=== PATIENT | female | born 1990 | race Caucasian/White ===

== ENCOUNTER 2018-03-10 10:31 | Outpatient (CLI) | END 2018-03-10 13:13 | disposition home or self-care (01) ==

== ENCOUNTER 2018-04-21 02:11 | Emergency (ER) | payer MEDICAID ==
[~2018-04-21] VITALS: Ht 165.1 cm; Wt 104.7 kg
[~2018-04-21 02:11] MED LIST: PREN-93 PO
[2018-04-21 02:15] VITALS: Ht 165.1 cm; Wt 104.7 kg
[2018-04-21] MEDS ORDERED: AMOX500C2 PO (02:48)
--- NOTE | 2018-04-21 02:51 | ERD ---
ER Documentation Chief Complaint Chief Complaint bilateral ear pain today only w/ fever-now resolved. 29 wks HPI 27-year-old female who is 29 weeks . She has no OB complaints. She is complaining of bilateral ear pain that began today. She also states she had a fever but admits she did not take her temperature at home. No cough. No abdominal pain. No nausea or vomiting. No urinary symptoms. No vaginal bleeding. No pelvic pain. Took Tylenol at about 4 PM. None since ROS All systems reviewed and are negative except as per history of present illness. Medications Home Meds Active Scripts Amoxicillin* (Amoxicillin*) 500 Mg Cap, 500 MG PO BID for 7 Days, CAP Prov:BARRY JUÁREZ PA-C 04/21/18 Reported Medications Vit No.124/Iron/FA ( Vitamin Tablet) 1 Each Tablet, 1 EACH PO DAILY, TAB 03/10/18 Allergies Allergies: Coded Allergies: No Known Allergies (Verified Allergy, Mild, 11/07/09) PMhx/Soc Medical and Surgical Hx: pt denies Medical Hx, pt denies Surgical Hx History of Surgery: No Anesthesia Reaction: No Hx Neurological Disorder: No Hx Respiratory Disorders: No Hx Cardiac Disorders: No Hx Psychiatric Problems: No Hx Miscellaneous Medical Probl: No Hx Alcohol Use: No Hx Substance Use: No Hx Tobacco Use: No Smoking Status: Unknown if ever smoked FmHx Family History: No diabetes Physical Exam Vitals Vital Signs Date Temp Pulse Resp B/P (MAP) Pulse Ox O2 O2 Flow FiO2 Time Delivery Rate 04/21/18 98.2 106 20 138/64 97 02:15 (88) Physical Exam INITIAL VITAL SIGNS: Reviewed by me GENERAL: Awake, alert and oriented x 4, well appearing, nontoxic, speaking in full sentences. No acute distress HEAD: Atraumatic NECK: Supple. No masses. Full range of motion. No meningismus. No midline tenderness. EYES: EOMI. PERRL. EAR: Right tympanic membrane erythematous, no exudates, left ear within normal limits THROAT: No tonilar erythema or edema. No exudates. Uvula midline. No kissing tonsils. RESPIRATORY: Clear to auscultation bilaterally. Symmetric chest wall rise. No wheezing or rales. No accessory muscle use. CV: Regular rate and rhythm. No murmurs, rubs, or gallops. ABDOMEN: Soft, fundal height appropriate for gestational age. Nontender. Negative [place]. Negative McBurneys point tenderness. No CVA tenderness bilaterally. No guarding. No rebound. Procedures/MDM female with ear pain. She has no OB complaints. She does have otitis media in the right ear. She is afebrile and has been over 4 hours that she is taking Tylenol. She was given a [id number] prescription for amoxicillin. Otherwise recommended just taking Tylenol at home. Patient counseled regarding my diagnostic impression and care plan. Prior to discharge all questions answered. Pt agrees with treatment plan and understands strict return precautions. Pt is instructed to follow up with primary care provider within 24- 48 hours. Precautionary instructions provided including instructions to return to the ER if not improving or for any worsening or changing symptoms or concerns. Departure Diagnosis: Primary Impression: Otitis media Condition: Stable Patient Instructions: Otitis Media, Wait And See Abx Tx (Child Over 6 Mo) Additional Instructions: Call your primary care doctor TOMORROW for an appointment during the next 1-2 days.See the doctor sooner or return here if your condition worsens before your appointment time. BARRY JUÁREZ PA-C Apr 21, 2018 02:51
[2018-04-21 03:03] VITALS: BP 119/60; PULSE 98; RESP 18
[2018-04-30] MEDS ORDERED: FOL8 PO (02:06)
[2018-04-30] MEDS ORDERED: FERR256T PO (02:06)
== END 2018-04-21 03:04 | disposition home or self-care (01) ==
LOC: FTE 02:11
DX: O99.89 Other specified diseases and conditions complicating pregnancy, childbirth and the puerperium (principal); H66.91 Otitis media, unspecified, right ear; Z3A.29 29 weeks gestation of pregnancy
CPT/HCPCS: 99283

== ENCOUNTER 2018-06-12 10:14 | Outpatient (CLI) | payer MEDICAID ==
[~2018-06-12] VITALS: Ht 165.1 cm; Wt 106.0 kg
[~2018-06-12 10:14] MED LIST changes: +FERR256T PO; +FOL8 PO
[2018-06-12 10:50] VITALS: Ht 165.1 cm; Wt 106.0 kg
[2018-06-12 10:51] VITALS: BP 113/66; PULSE 82; RESP 20
--- NOTE | 2018-06-12 14:11 | TRIAGE ---
OB Triage Datetime Report Generated by CPN: 06/12/2018 14:11 Datetime: 06/12/2018 13:00 Labor Evaluation Frequency: 0 Monitor Mode: External Heart Rate FHR Baseline Rate: 130 Monitor Mode: External US FHR Baseline Changes: No Baseline Change Variability: Moderate 6-25 bpm Accelerations: 15X15 Decelerations: None Category: Category I Pain Assessment Pain Scale: 0 Pain Presence: None/Denies Pain Type: N/A Pain Goal: 0 Datetime: 06/12/2018 11:59 Labor Evaluation Frequency: X2 Monitor Mode: External Duration (sec)2399: 40-60 Quality: Mild Pattern: Normal: <= 5 Contractions in 10 Minutes Resting Tone [place]: Relaxed Heart Rate FHR Baseline Rate: 130 Monitor Mode: External US FHR Baseline Changes: No Baseline Change Variability: Moderate 6-25 bpm Accelerations: 15X15 Decelerations: None Category: Category I Pain Assessment Pain Scale: 0 Pain Presence: None/Denies Pain Type: N/A Pain Goal: 0 Datetime: 06/12/2018 11:23 Monitor Mode: External US Datetime: 06/12/2018 11:08 Labor Evaluation Frequency: X1 Monitor Mode: External Duration (sec)2399: 60 Quality: Mild Pattern: Normal: <= 5 Contractions in 10 Minutes Resting Tone [place]: Relaxed Heart Rate FHR Baseline Rate: 130 Monitor Mode: External US FHR Baseline Changes: No Baseline Change Variability: Moderate 6-25 bpm Accelerations: 15X15 Decelerations: None Category: Category I Pain Assessment Pain Scale: 0 Pain Presence: None/Denies Pain Type: N/A Pain Goal: 0 Datetime: 06/12/2018 10:41 Stage of : OB Triage Assessment Type: Triage Maternal Assessment Level of Consciousness: Fully Conscious DTR's/Clonus: DTRs 2+; No Clonus Headache: Denies Blurred Vision: No Respiratory Effort: Unlabored; Regular Rhythm; Equal Expansion Breath Sounds, Left: Clear and Equal Breath Sounds, Right: Clear and Equal Nausea/Vomiting: Denies RUQ Epigastric Pain: Denies Lower Extremities Edema: Bilateral Lower Extremities Degree: None Upper Extremities Edema: None Degree: None Facial Edema: None Temperature Route: Axillary Fall Risk Assessment History of Falling: (0) No Secondary Diagnosis: (0) No Ambulatory Aid: (0) Bedrest/Nurse Assist IV Therapy: (0) No Gait: (0) Normal/Bedrest/Immobile Mental Status: (0) Oriented to Own Ability Fall Score: 0 Fall Risk Score Definition: No Risk: No action required Monitor Mode: External Monitor Mode: External US Datetime: 06/12/2018 10:27 Time of Arrival: 06/12/2018 10:10 EGA: 36.5 Arrived By: Ambulatory Movement: Present Contractions: Denies/Absent Rupture of Membranes: Denies Vaginal Bleeding: None Vaginal Discharge: Denies Recent Sexual Intercouse: Denies Abdominal Trauma: Not Applicable Patient Complaints: None Time Provider Notified: 06/12/2018 13:15 Provider Notified: DR. AGARWAL Datetime: 04/30/2018 03:57 Monitor Mode: External Contraction Comments: no uc's noted Heart Rate FHR Baseline Rate: 140 Monitor Mode: External US Variability: Moderate 6-25 bpm Accelerations: 15X15 Decelerations: None Category: Category I Datetime: 04/30/2018 03:20 Labor Evaluation Frequency: x1 Monitor Mode: External Duration (sec)2399: 50 Quality: Mild Pattern: Normal: <= 5 Contractions in 10 Minutes Resting Tone [place]: Relaxed Heart Rate FHR Baseline Rate: 140 Monitor Mode: External US Variability: Moderate 6-25 bpm Accelerations: 15X15 Decelerations: None Category: Category I Datetime: 04/30/2018 02:30 Labor Evaluation Frequency: x3 Monitor Mode: External Duration (sec)2399: 40-120 Quality: Mild Pattern: Normal: <= 5 Contractions in 10 Minutes Resting Tone [place]: Relaxed Monitor Mode: External US Comments: FHR indeterminate. Bedside ultrasound in progress. Datetime: 04/30/2018 01:30 Monitor Mode: External Contraction Comments: no uc's noted Heart Rate FHR Baseline Rate: 150 Monitor Mode: External US Variability: Moderate 6-25 bpm Accelerations: 15X15 Decelerations: None Category: Category I Datetime: 04/30/2018 01:15 EGA: 30.4 Datetime: 04/30/2018 01:01 Fall Score: 0 Fall Risk Score Definition: No Risk: No action required Datetime: 03/10/2018 10:48 Fall Score: 0 Fall Risk Score Definition: No Risk: No action required Datetime: 03/10/2018 10:47 EGA: 23.2
--- NOTE | 2018-06-12 16:01 | PN ---
Triage Information Date/Time June 12, 2018 Reason for visit: Patient was sent from clinic here due to size more than dates for ultrasound evaluation and estimated weight Weeks of Gestation 36 weeks and 5 days /Para 1 para 0 Diabetes: none Hypertention: none Additional information 37-year-old with IUP at 36 weeks and 5 days presents to the hospital for ultrasound evaluation due to size more than dates noted during OB visit. Patient denies any history of gestational diabetes during . GDM testing in her records negative. Denies any complaint. Denies any vaginal b leeding, leaking of fluid or uterine contractions or decreased movement. Objective Vital Signs Date Temp Pulse Resp B/P (MAP) Pulse Ox O2 O2 Flow FiO2 Time Delivery Rate 06/12/18 98.1 82 20 113/66 Room Air 10:51 (82) Heart Rate: 130's Heart Rate Comments Category 1 Contractions: None Exam General appearance: Alert and oriented x4 does not appear to be in any acute distress Abdomen: Soft, gravid, fundal height consider gestational age NST: Category 1 GALILEA: 13.7 BP: 8/8 External weight: 28 percentile Breech presentation noted on ultrasound Results/Medications Imaging Results PROCEDURE: US OB biophysical profile. CLINICAL INDICATION: decreased movements, TECHNIQUE: Multiple sonographic images of the pelvis were obtained. The images were reviewed on a PACS workstation. COMPARISON: US PELVIS 04/30/2018 FINDINGS: There is a single live intrauterine gestation. Cardiac activity is present with 132 beats per minute. There is a breech presentation. The placenta is posterior. There is no evidence of placental abruption. There is a normal amount of amniotic fluid with an GALILEA = 13.7 cm. Biophysical profile: movement 2/2 tone 2/2. breathing 2/2 GALILEA 2/2 Total 10/30 RPTAT: AA . IMPRESSION: Normal biophysical profile. ROCEDURE: US OB. CLINICAL INDICATION: Size and dates TECHNIQUE: Multiple sonographic images of the pelvis and gravid uterus were obtained. The images were reviewed on a PACS workstation. COMPARISON: US PELVIS 04/30/2018 FINDINGS: Gestation: Single live intrauterine gestation. Cardiac activity: 135 beats per minute. Presentation: Breech Placenta: Location: Posterior Appearance: No previa or abruption. Measurements: BPD = 8.3 cm, 33 weeks and 4 days HC = 30.9 cm, 34 weeks and 3 days AC = 32.7 cm, 36 weeks and 5 days FL = 6.9 cm, 35 weeks and 3 days Gestational Age: AUA estimated gestational age: 35 weeks 0 days LMP estimated gestational age: 36 weeks 5 days AUA estimated date of delivery: 07/17/18 The EFW = 2756 g, 28.7%ile based on LMP age. Disposition: Discharge Assessment/Plan IUP at 36 and 5 days size consistent with dates by ultrasound No evidence of macrosomia or LGA noted Estimated weight 28 percentile testing reassuring Patient will be discharged home Strict labor precautions kick count and follow-up with primary OB office within 48 hours after discharge from the hospital discussed with patient patient verbalized understanding. All questions were answered to patient's best satisfaction. MARTELL AGARWAL MD Jun 12, 2018 16:01
== END 2018-06-12 13:35 | disposition home or self-care (01) ==
LOC: OBT 10:14 → L-D 10:15 → OBT 13:35
PROVIDERS: ATTEND Obstetrics & Gynecology
DX: O26.843 Uterine size-date discrepancy, third trimester (principal); Z3A.36 36 weeks gestation of pregnancy
CPT/HCPCS: 76815; 76818; G0463

== ENCOUNTER 2018-07-05 11:40 | Inpatient (IN) | payer MEDICAID ==
[~2018-07-05] VITALS: Ht 165.1 cm; Wt 104.7 kg
[2018-07-10] MEDS ORDERED: MISOPROSTOL 200 MCG TAB PR PRN (12:30)
[2018-07-10] MEDS ORDERED: BUTORPHANOL 2 MG INJ IV PRN (12:30)
[2018-07-10] MEDS ORDERED: LIDOCAINE 1% (MPF) 30 ML INJ INJ PRN (12:30)
[2018-07-10] MEDS ORDERED: OXYTOCIN 30 UNITS/LR 500 ML IV PRN (12:30)
[2018-07-10] MEDS ORDERED: CARBOPROST 250 MCG INJ IM PRN (12:30)
[2018-07-10] MEDS ORDERED: OXYTOCIN 30 UNITS/LR 500 ML IV SCH ×4 (12:30→14:00)
[2018-07-10] MEDS ORDERED: METHYLERGONOVINE 0.2 MG INJ IM PRN (12:30)
[2018-07-10] MEDS: LACTATED RINGER'S 1,000 ML IV SCH ×2 (12:45→13:03)
[2018-07-10 13:00] VITALS: Ht 165.1 cm; Wt 104.7 kg
[2018-07-10] MEDS ORDERED: IBUPROFEN 600 MG TAB PO PRN (14:00)
[2018-07-10] MEDS ORDERED: FAMOTIDINE 20 MG INJ IV SCH (20:00)
[2018-07-11] VITALS (12 sets, daily range): BP systolic 115–139; BP diastolic 55–71; PULSE 86–126; RESP 18–19
[2018-07-11] MEDS: LACTATED RINGER'S 1,000 ML IV SCH ×4 (00:13→17:00)
--- NOTE | 2018-07-11 01:26 | PREAC ---
Date/Time of Note Date/Time of Note DATE: 07/11/18 TIME: Anesthesia Eval and Record Evaluation Time Pre-Procedure Interview DATE: 07/11/18 TIME: Age 27 Sex female NPO: 8 hrs Preoperative diagnosis Planned procedure epidural Past Medical History Past Medical History: Includes GI: Obesity Surgery & Anesthesia Issues No known issue Meds Anticoagulation: No Beta Elzbieta within 24 hr: No Reason Beta Elzbieta not given: Pt. not on B-Elzbieta Reported Medications Folic Acid* (Folic Acid*) 0.8 Mg Tablet, 0.8 MG PO DAILY, TAB 04/30/18 Ferrous Gluconate (Iron) 256 Mg Tablet, 256 MG PO, TAB 04/30/18 Vit No.124/Iron/FA ( Vitamin Tablet) 1 Each Tablet, 1 EACH PO DAILY, TAB 03/10/18 Current Medications Lactated Ringer's 1,000 ml @ 125 mls/hr Q8H IV Last administered on 07/11/18at 00:13; Admin Dose 125 MLS/HR; Start 07/10/18 at 12:22 Butorphanol Tartrate (Stadol) 2 mg Q2H PRN IV .PAIN Last administered on 07/10/18at 22:12; Admin Dose 2 MG; Start 07/10/18 at 12:30 Lidocaine (Xylocaine 1% (Mpf)) 30 ml ONCE PRN INJ .EPISIOTOMY; Start 07/10/18 at 12:30 Oxytocin/Lactated Ringer's 500 ml @ 500 mls/hr ONCE POST IV ; Start 06/23 11/10 at 12:30 Oxytocin/Lactated Ringer's 500 ml @ 125 mls/hr POST IV ; Start 07/10/18 at 12:30 Oxytocin/Lactated Ringer's 500 ml @ 0 mls/hr ONCE PRN IV .VAGINAL BLEEDING; Start 07/10/18 at 12:30 Methylergonovine Maleate (Methergine) 0.2 mg ONCE PRN IM .VAGINAL BLEEDING; Start 07/10/18 at 12:30 Carboprost Tromethamine (Hemabate) 250 mcg ONCE PRN IM .VAGINAL BLEEDING; Start 07/10/18 at 12:30 Misoprostol (Cytotec) 1,000 mcg ONCE PRN VA .VAGINAL BLEEDING; Start 07/10/18 at 12:30 Oxytocin/Lactated Ringer's 500 ml @ 0 mls/hr Q0M IV ; Start 07/10/18 at 14:00 Ibuprofen (Motrin) 600 mg ONCE PRN PO .PAIN 1-5; Start 07/10/18 at 14:00 Oxytocin/Lactated Ringer's 500 ml @ 0 mls/hr FOR AUGMENTATION IV Last administered on 07/10/18at 14:48; Admin Dose 2 MLS/HR; Start 07/10/18 at 14:00 Famotidine (Pepcid Iv) 20 mg BID IV Last administered on 07/10/18at 20:04; Admin Dose 20 MG; Start 07/10/18 at 20:00 Meds reviewed: Yes Allergies Coded Allergies: No Known Allergy (Unverified , 04/30/18) Allergies Reviewed: Yes Labs/Studies Labs Reviewed: Reviewed by anesthesiologist Result Diagram: 07/10/18 1220 Laboratory Tests 07/10/18 12:20 Blood Bank Test 07/10/18 12:20 Antibody Screen NEGATIVE Blood Type O POSITIVE Rh Immune Globulin Candidate NO test: Positive Pre-procedure Exam Airway: Adequate mouth opening, Adequate thyromental dist Mallampati: Mallampati II Teeth: Normal Lung: Normal Heart: Normal ASA Physical Status ASA physical status: 2 Emergency: None Planned Anesthetic Neuraxial: Epidural Pre-operative Attestations Prior to commencing anesthesia and surgery, the patient was re-evaluated, there was verification of: *The patient's identity *The results of appropriate recent lab work and preoperative vital signs *The above evaluation not changing prior to induction *Anesthetic plan, risk benefits, alternative and complications discussed with patient/family; questions answered; patient/family understands, accepts and wishes to proceed. ADELITA DONALDSON Jul 11, 2018 01:26
[2018-07-11] MEDS ORDERED: KETOROLAC 30 MG INJ IV PRN (01:30)
[2018-07-11] MEDS ORDERED: HYDROmorphONE 0.5 MG/0.5 ML SYG IV PRN ×2 (01:30)
[2018-07-11] MEDS ORDERED: FENTAnyl 2MCG/ML-ROPIV 0.2% 100 ML BAG EPI SCH (01:30)
[2018-07-11] MEDS ORDERED: NALOXONE (0.4 MG/ML) INJ IV PRN (01:30)
[2018-07-11] MEDS ORDERED: DIPHENHYDRAMINE 50 MG INJ IV PRN (01:30)
[2018-07-11] MEDS ORDERED: ONDANSETRON 4 MG INJ IV PRN (01:30)
--- NOTE | 2018-07-11 02:26 | PAC ---
Date/Time of Note Date/Time of Note DATE: 07/11/18 TIME: 02:26 Post-Anesthesia Notes Post-Anesthesia Note Activity: WNL Respiratory function: WNL Cardiovascular function: WNL Mental status: Baseline Pain reasonably controlled: Yes Hydration appropriate: Yes Nausea/Vomiting absent: Yes ADELITA DONALDSON Jul 11, 2018 02:26
[2018-07-11] MEDS ORDERED: ACETAMINOPHEN 325 MG TAB PO ONE (09:00)
[2018-07-11] MEDS ORDERED: MINERAL OIL 30ML CUP PO ONE (13:30)
--- NOTE | 2018-07-11 15:24 | LDN ---
Date/Time of Note Date/Time of Note DATE: 07/11/18 TIME: 15:21 Delivery Summary of normal female Weeks of Gestation 40w2d Placenta Delivered: Spontaneously, Intact & Complete Episiotomy: No Perineal laceration: 0 Estimated blood loss: 200 Sponge & Needle done & correct: Yes All needle counts correct: Yes Any foreign bodies felt in the: No Infant Delivery Information Sex Infant Sex: female Apgars 1 Minute: 9 5 Minute: 9 Suctioning Nose & mouth suctioned at dariel: Yes Delee suction performed: No Umbilical Cord Umbilical cord with: 3 Vessels Cord presentations: no nuchal cord Cord Blood was obtained: Yes Mother & Baby Disposition Disposition Mom & Baby to Maternity; Good: Yes Mom transferred to: Other Baby to NICU: No () SEAN CARLOS MD Jul 11, 2018 15:24
[2018-07-11] MEDS ORDERED: MISOPROSTOL 200 MCG TAB PR PRN (16:30)
[2018-07-11] MEDS ORDERED: OXYCODONE/ASPIRIN (4.88/325) TAB PO PRN (16:30)
[2018-07-11] MEDS ORDERED: LANOLIN HPA 1 PKT TOP PRN (16:30)
[2018-07-11] MEDS ORDERED: WITCH HAZEL/GLYCERIN PAD PR PRN (16:30)
[2018-07-11] MEDS ORDERED: METHYLERGONOVINE 0.2 MG INJ IM PRN (16:30)
[2018-07-11] MEDS ORDERED: CARBOPROST 250 MCG INJ IM PRN (16:30)
[2018-07-11] MEDS ORDERED: ZOLPIDEM 5 MG TAB PO PRN (16:30)
[2018-07-11] MEDS ORDERED: BENZOCAINE 20% 56 ML SPRAY TOP PRN (16:30)
[2018-07-11] MEDS ORDERED: OXYTOCIN 30 UNITS/LR 500 ML IV PRN (16:30)
[2018-07-11] MEDS: IBUPROFEN 600 MG TAB PO SCH ×2 (17:15→23:42)
[2018-07-11] MEDS: SENNA/DOCUSATE NA (8.6MG/50MG) TAB PO SCH (21:40)
[2018-07-12] MEDS: LACTATED RINGER'S 1,000 ML IV SCH ×3 (01:00→16:45)
[2018-07-12] MEDS: OXYCODONE/ASPIRIN (4.88/325) TAB PO PRN ×2 (03:14→12:40)
[2018-07-12 04:00] VITALS: BP 113/62; PULSE 82; RESP 19
[2018-07-12] MEDS: IBUPROFEN 600 MG TAB PO SCH ×3 (05:52→17:19)
[2018-07-12 07:30] VITALS: BP 112/64; PULSE 82; RESP 18
[2018-07-12] MEDS: SENNA/DOCUSATE NA (8.6MG/50MG) TAB PO SCH ×2 (08:39→21:47)
--- NOTE | 2018-07-12 11:20 | PN ---
Date/Time of Note Date/Time of Note DATE: 07/12/18 TIME: 11:18 OB Subjective Subjective Subjective Decreased vaginal bleeding. Complains of low back pain. Urinated. Denies any dizziness or lightheadedness. Reports mild cramping. OB Objective Objective Objective General appearance: Alert and oriented x4 does not appear to be in any acute distress Abdomen: Soft, fundus palpable and firm and nontender at the level of umbilicus No CVA tenderness Extremities: No calf tenderness, no click no edema no cord palpable Breast: No evidence of mastitis or fissure CBC & BMP 07/10/18 12:20 07/11/18 09:29 07/12/18 08:19 Liver Function Test 07/11/18 09:29 Alanine Aminotransferase (ALT/SGPT) 17 Albumin 3.6 Alkaline Phosphatase 150 H Aspartate Amino Transf (AST/SGOT) 25 Direct Bilirubin 0.00 Total Protein 7.2 VS - Last 72 Hours, by Label Date Temp Pulse Resp B/P (MAP) Pulse Ox O2 O2 Flow FiO2 Time Delivery Rate 07/12/18 98.1 82 19 113/62 Room Air 04:00 (79) 07/11/18 98.4 86 19 117/62 Room Air 19:30 (80) 07/11/18 98.7 101 18 128/67 Room Air 17:20 (87) 07/11/18 99.0 101 18 126/67 Room Air 15:45 (86) 07/11/18 98.2 107 18 116/57 Room Air 15:07 (76) 07/11/18 111 18 131/71 Room Air 14:54 (91) 07/11/18 117 18 131/62 Room Air 14:22 (85) 07/11/18 110 18 136/63 Room Air 14:07 (87) 07/11/18 113 18 115/55 Room Air 13:52 (75) 07/11/18 115 18 123/60 Room Air 13:37 (81) 07/11/18 114 18 118/58 Room Air 13:22 (78) 07/11/18 123 18 129/62 Room Air 13:07 (84) 07/11/18 98.5 126 18 139/65 Room Air 12:52 (89) OB Assessment/Plan Other Assessment: Status post day #1 Doing well Low back pain, musculoskeletal. Cramps, , after pain Discussed regarding NSAIDs as needed Routine care MARTELL AGARWAL MD Jul 12, 2018 11:20
[2018-07-12 15:39] VITALS: BP 120/74; PULSE 83; RESP 20
[2018-07-12 21:30] VITALS: BP 117/68; PULSE 77; RESP 18
[2018-07-13] MEDS: IBUPROFEN 600 MG TAB PO SCH ×3 (00:17→11:47)
[2018-07-13] MEDS: LACTATED RINGER'S 1,000 ML IV SCH (01:00)
[2018-07-13 03:45] VITALS: BP 103/54; PULSE 87; RESP 18
[2018-07-13 08:00] VITALS: BP 112/72; PULSE 78; RESP 18
[2018-07-13] MEDS: SENNA/DOCUSATE NA (8.6MG/50MG) TAB PO SCH (08:59)
[2018-07-13] MEDS ORDERED: DIPHTH/TET/ACEL PERTUSS (ADULT) 0.5 ML VIAL IM* ONE (09:00)
[2018-07-13 15:45] VITALS: BP 116/57; PULSE 91; RESP 18
--- NOTE | 2018-07-13 16:36 | QN ---
Documentation Comment PPD# 2 is stable.afebrile.No VB +BM +voids Vs stable Gen NAD Abd soft NT ND Genitalia No blood at perineum --->Discharge Home AYESHA TOSCANO M.D. Jul 13, 2018 16:36
--- NOTE | 2018-07-13 16:36 | DS ---
Date/Time of Note Date/Time of Note DATE: 07/13/18 TIME: 16:36 Discharge Summary Admission/Discharge Info Admit Date/Time Jul 10, 2018 at 11:42 Discharge Date/Time 07/13/2018 Discharge Diagnosis Patient Condition: Good Hospital Course uneventful Home Meds Reported Medications Folic Acid* (Folic Acid*) 0.8 Mg Tablet, 0.8 MG PO DAILY, TAB 04/30/18 Ferrous Gluconate (Iron) 256 Mg Tablet, 256 MG PO, TAB 04/30/18 Vit No.124/Iron/FA ( Vitamin Tablet) 1 Each Tablet, 1 EACH PO DAILY, TAB 03/10/18 Primary Care Provider Care Physician No Primary AYESHA TOSCANO M.D. Jul 13, 2018 16:36
--- NOTE | 2018-07-14 18:46 | DELSUM ---
Delivery Summary A-C Datetime Report Generated by CPN: 07/14/2018 18:46 DELIVERY PERSONNEL Gas Worker: Orel, Analy MATERNAL INFORMATION Delivery Anesthesia: Epidural Medications in Delivery: 30 units of pit in LR 500 cc Delivery QBL (ml): 200 Placenta Cultured: No Maternal Complications: None Other Maternal Complications: INDUCTION POST DATE LABOR SUMMARY EDC: 07/05/2018 00:00 No. Babies in Womb: 1 Attempted: No Labor Anesthesia: Epidural LABOR INFORMATION Reason for Induction: Postterm Onset of Labor: 07/10/2018 21:50 Complete Dilatation: 07/11/2018 11:52 Oxytocin: Induction Group B Beta Strep: Negative Antibiotics # of Doses: 0 Steroids Given: None Reason Steroids Not Administered: Not Applicable MEMBRANES Membranes Rupture Method: Spontaneous Rupture of Membranes: 07/11/2018 10:53 Length of Rupture (hr): 1.80 Amniotic Fluid Color: Clear Amniotic Fluid Amount: Moderate Amniotic Fluid Odor: None STAGES OF LABOR Stage 1 hr: 14 Stage 1 min: 2 Stage 2 hr: 0 Stage 2 min: 49 Stage 3 hr: 0 Stage 3 min: 3 Total Time in Labor hr: 14 Total Time in Labor min: 54 VAGINAL DELIVERY Episiotomy: None Laceration Extension: N/A Laceration Type: None Laceration Repair: Not Applicable Initial Vag Sponge Count: 10 Final Vag Sponge Count: 10 Initial Vag Sharps Count: 1 Final Vag Sharps Count: 1 Sponge Count Correct: Yes Sharps Count Correct: Yes BABY A INFORMATION Delivery Date/Time: 07/11/2018 12:41 Method of Delivery: Vaginal Born in Route : No : N/A Forceps: N/A Vacuum Extraction: N/A Shoulder Dystocia : No SHOULDER DYSTOCIA BABY A Infant Delivery Date/Time: 07/11/2018 12:41 PRESENTATION/POSITION BABY A Presentation: Cephalic Cephalic Presentation: Vertex Vertex Position: Left Occipital Anterior Breech Presentation: N/A PLACENTA INFORMATION BABY A Placenta Delivery Time : 07/11/2018 12:44 Placenta Method of Delivery: Spontaneous Placenta Status: Delivered SCORES BABY A Heart Rate 1 min: >100 bpm Resp Effort 1 min: Good Cry Reflex Irritability 1 min: Cough/Sneeze/Pulls Away Muscle Tone 1 min: Active Motion Color 1 min: Body [employer], Extremit Blue Resuscitation Effort 1 min: Tactile Stimulation SCORE 1 MIN: 9 Heart Rate 5 min: >100 bpm Resp Effort 5 min: Good Cry Reflex Irritability 5 min: Cough/Sneeze/Pulls Away Muscle Tone 5 min: Active Motion Color 5 min: Body [employer], Extremit Blue Resuscitation Effort 5 min: Tactile Stimulation SCORE 5 MIN: 9 INFANT INFORMATION BABY A Gestational Age at Delivery: 40.6 Gestational Status: Full Term- 39- 40.6 Weeks Infant Outcome : Liveborn Condition : Stable Sex: Female IDENTIFICATION/MEDS BABY A ID Band Number: [id number] ID Band Location: Right Leg; Left Arm Sensor Applied: Yes Sensor Number: [id number] Sensor Location : Cord Clamp Vitamin K Given : Not Given Erythromycin Given: Not Given WEIGHT/LENGTH BABY A Infant Birthweight (gm): 3565 Weight (lb): 7 Weight (oz): 14 Infant Length (in): 20.50 Infant Length (cm): 52.07 CORD INFORMATION BABY A No. Cord Vessels: 3 Nuchal Cord : N/A Cord Blood Taken: Yes Suction: Mouth; Nose ASSESSMENT BABY A Complications: None Physical Findings at Delivery: Within Normal Limits Infant Respirations: Appears Normal Hand Sizer/ALS Called : No Care By: LEONA Perdomo Transferred To: Remains with Mother
== END 2018-07-13 18:45 | disposition home or self-care (01) | DRG 807 ==
LOC: EDSTATUS 11:40 → L-D 07-10 11:42 → PP1 07-11 15:45
PROVIDERS: ADMIT Obstetrics & Gynecology; ATTEND Obstetrics & Gynecology
PROC: 10E0XZZ Delivery of Products of Conception, External Approach (ICD-10-PCS; principal; 2018-07-11)
DX: O99.214 Obesity complicating childbirth (principal); Z37.0 Single live birth; Z3A.40 40 weeks gestation of pregnancy
CPT/HCPCS: 62322; 76815; 80053; 81001; 84560; 85025; 85384; 85610; 85730; 86592; 86850; 86900; 86901; J0595; J2590; J3010; J7120

== ENCOUNTER 2018-07-30 12:08 | Emergency (ER) | payer MEDICAID ==
[~2018-07-30] VITALS: Ht 162.6 cm; Wt 99.5 kg
[2018-07-30 12:13] VITALS: BP 123/62; PULSE 78; RESP 20; Ht 162.6 cm; Wt 99.5 kg
[2018-07-30] MEDS ORDERED: CEPH-443 PO (13:44)
--- NOTE | 2018-07-30 15:25 | ERD ---
ER Documentation Chief Complaint Chief Complaint fever today; ; cough x3days; abd pain on/off 2 days HPI 27-year-old female presenting with fever x 2 days. Patient states that she has tactile fevers and she is been feeling very shaky and irritated. She is breast- feeding and she gave 3 weeks ago. Patient states that she feels some fullness and irritation to her breast but she is unsure if there is an infection. She also has some diffuse lower pelvic pain. She states she still having some vaginal bleeding. Patient denies any dizziness. Patient she denies heavy bleeding. A0. ROS All systems reviewed and are negative except as per history of present illness. Medications Home Meds Active Scripts Cephalexin* (Keflex*) 500 Mg Capsule, 500 MG PO QID for 7 Days, CAP Prov:ATUL SAMANIEGO PA-C 07/30/18 Allergies Allergies: Coded Allergies: No Known Allergy (Unverified , 04/30/18) PMhx/Soc History of Surgery: No Anesthesia Reaction: No Hx Neurological Disorder: No Hx Respiratory Disorders: No Hx Cardiac Disorders: No Hx Psychiatric Problems: No Hx Miscellaneous Medical Probl: No Hx Alcohol Use: No Hx Substance Use: No Hx Tobacco Use: No Physical Exam Vitals Vital Signs Date Temp Pulse Resp B/P (MAP) Pulse Ox O2 O2 Flow FiO2 Time Delivery Rate 07/30/18 98.0 78 20 123/62 96 12:13 (82) Physical Exam Const: No acute distress Head: Atraumatic Eyes: Normal Conjunctiva ENT: Normal External Ears, Nose and Mouth. Neck: Full range of motion. No meningismus. Resp: Clear to auscultation bilaterally Cardio: Regular rate and rhythm, no murmurs Abd: Soft, non tender, non distended. Normal bowel sounds Skin: No petechiae or rashes Back: No midline or flank tenderness Ext: No cyanosis, or edema Neur: Awake and alert Psych: Normal Mood and Affect Results 24 hrs Laboratory Tests Test 07/30/18 12:47 07/30/18 12:51 POC Beta HCG, Qualitative NEGATIVE Bedside Urine pH (LAB) 6.0 Bedside Urine Protein (LAB) Negative Bedside Urine Glucose (UA) Negative Bedside Urine Ketones (LAB) Negative Bedside Urine Blood 3+ Bedside Urine Nitrite (LAB) Negative Bedside Urine Leukocyte Esterase (L 2+ Procedures/MDM ER course: Urine collected. MDM: 27-year-old female presenting with flulike symptoms. Patient's breast exam looks to be in within normal limits. There is low suspicion for mastitis. I have low suspicion for pyelonephritis. Patient does have findings concerning for urinary tract infection I will treat with oral antibiotics. I have low suspicion for sepsis. Patient is recommended to continue breast-feeding. Patient is told symptoms change or worsen to return immediately to the ER. All questions answered at discharge Departure Diagnosis: Primary Impression: Fever Condition: Stable Patient Instructions: Urinary Tract Infections in Women, Fever Control (Adult) Referrals: COMM[facility]ITY CLINICS YOU HAVE RECEIVED A MEDICAL SCREENING EXAM AND THE RESULTS INDICATE THAT YOU DO NOT HAVE A CONDITION THAT REQUIRES URGENT TREATMENT IN THE EMERGENCY DEPARTMENT. FURTHER EVALUATION AND TREATMENT OF YOUR CONDITION CAN WAIT UNTIL YOU ARE SEEN IN YOUR DOCTORS OFFICE WITHIN THE NEXT 1-2 DAYS. IT IS YOUR RESPONSIBILITY TO MAKE AN APPOINTMENT FOR FOLOW-UP CARE. IF YOU HAVE A PRIMARY DOCTOR --you should call your primary doctor and schedule an appointment IF YOU DO NOT HAVE A PRIMARY DOCTOR YOU CAN CALL OUR PHYSICIAN REFERRAL HOTLINE AT IF YOU CAN NOT AFFORD TO SEE A PHYSICIAN YOU CAN CHOSE FROM THE FOLLOWING [facility] [id number] [facility]. [facility] [address] [facility]. [facility] [address] [facility] [facility] [address] [facility]. [facility] [address] [facility]. [facility]. [address] Additional Instructions: FOLLOW UP WITH YOUR PRIMARY CARE PHYSICIAN TOMORROW.Return to this facility if you are not improving as expected. ATUL SAMANIEGO PA-C July 30, 2018 15:25
== END 2018-07-30 14:01 | disposition home or self-care (01) ==
LOC: FTE 12:08
DX: O86.4 Pyrexia of unknown origin following delivery (principal); B97.89 Other viral agents as the cause of diseases classified elsewhere
CPT/HCPCS: 81003; 81025; Z7502; 99283